=== PATIENT | male | born 1970 | race Caucasian/White ===

== ENCOUNTER 2018-05-14 05:17 | Emergency (ER) | payer SELFPAY ==
[~2018-05-14] VITALS: Ht 188 cm; Wt 80.3 kg
--- NOTE | 2018-05-14 06:36 | Diagnostic Imaging Report ---
EXAMINATION: CHEST 2 VIEWS INDICATION: Cough. COMPARISON: None FINDINGS: TUBES and LINES: None. LUNGS: Lungs are well inflated. Lungs are clear. There is no evidence of pneumonia or pulmonary edema. PLEURA: No pleural effusion or pneumothorax. HEART AND MEDIASTINUM: The cardiomediastinal silhouette is unremarkable. BONES AND SOFT TISSUES: No acute osseous lesion. Soft tissues are unremarkable. UPPER ABDOMEN: No free air under the diaphragm. IMPRESSION: No acute thoracic abnormality. Signed by: Dr. Bill Barahona M.D. on 05/14/2018 6:32 AM
== END 2018-05-14 06:59 | disposition home or self-care (01) ==
LOC: ER 05:17
DX: R05 Cough (principal); R07.89 Other chest pain; J30.2 Other seasonal allergic rhinitis
CPT/HCPCS: 71046; 93005; 99283

== ENCOUNTER 2018-09-23 15:59 | Emergency (ER) | payer SELFPAY ==
[~2018-09-23] VITALS: Ht 188 cm; Wt 81.6 kg
--- OUTSIDE RECORDS SUMMARY | 2018-09-23 16:02 | XMS REPORT ---
[facility] Address Unknown Phone Unavailable Care Team Providers Care Director Of Education And Training Name Role Phone Shreya CONLEY Unavailable Unavailable Problems This patient has no known problems. Allergies, Adverse Reactions, Alerts This patient has no known allergies or adverse reactions. Medications This patient has no known medications. Results Test Description Test Time Test Comments Text Results Atomic Results Result Comments CHEST 2 VIEWS 2018-05-14 06:32:00 [place] [address] Patient Name: VIRI HYLTON MR #: [id number] : 1970 Age/Sex: 48/M Req #: [id number] Adm Physician: Ordered by: MAEGAN CONLEY MD Report #: [id number] Location: ER Room/Bed: Procedure: [id number] DX/CHEST 2 VIEWS Exam Date: 05/14/18 Exam Time: 0600 REPORT STATUS: Signed EXAMINATION: CHEST 2 VIEWS INDICATION: Cough. COMPARISON: None FINDINGS: TUBES and LINES: None. LUNGS: Lungs are well inflated. Lungs are clear. There is no evidence of pneumonia or pulmonary edema. PLEURA: No pleural effusion or pneumothorax. HEART AND MEDIASTINUM: The cardiomediastinal silhouette is unremarkable. BONES AND SOFT TISSUES: No acute osseous lesion. Soft tissues are unremarkable. UPPER ABDOMEN: No free air under the diaphragm. IMPRESSION: No acute thoracic abnormality. Signed by: Dr. Bill Barahona M.D. on 05/14/2018 6:32 AM Dictated By: BILL YAN MD 1 Transcribed By: KEVIN on 05/14/18631 COPY TO: MAEGAN CONLEY MD
[2018-09-23] MEDS ORDERED: TETANUS/DIPHTHERIA TOX ADULT 0.5 ML SYR IM ONE (16:15)
[2018-09-23] MEDS ORDERED: KETOROLAC TROMETHAMINE 10 MG TAB PO ONE (16:15)
[2018-09-23] MEDS ORDERED: CEPHALEXIN 500 MG CAP PO ONE (16:15)
--- NOTE | 2018-09-23 17:47 | Diagnostic Imaging Report ---
Radiographs of the right forearm - 2 views HISTORY: Pain. Foreign body. COMPARISON: None available. FINDINGS: Bones: No acute displaced fracture. Osseous alignment is within normal limits. Joints: The joint spaces are well-maintained. Soft tissues: No radiopaque foreign body is seen. Questionable soft tissue defect along the mid right forearm IMPRESSION: No radiopaque foreign body is seen. Questionable soft tissue defect along the mid right forearm Signed by: Dr. Dipak Boston M.D. on 09/23/2018 5:44 PM
[2018-09-23 18:11] VITALS: BP 146/79
== END 2018-09-23 18:04 | disposition home or self-care (01) ==
LOC: ER 15:59
DX: S51.811A Laceration without foreign body of right forearm, initial encounter (principal); W25.XXXA Contact with sharp glass, initial encounter; Y92.008 Other place in unspecified non-institutional (private) residence as the place of occurrence of the external cause; F17.210 Nicotine dependence, cigarettes, uncomplicated
CPT/HCPCS: 90471; 90714; 99283